=== PATIENT | female | born 1990 | race American Indian/Alaskan Native ===

== ENCOUNTER 2018-10-09 18:59 | Emergency (ER) | payer MEDICAID ==
[2018-10-09 19:25] VITALS: BP 140/98
[2018-10-09 21:03] LABS: HCG Qualitative,Urine Negative (Negative)
--- NOTE | 2018-10-09 22:19 | XRay Report ---
PROCEDURE: XR CHEST 1V AP TECHNIQUE: Chest radiograph single view. HISTORY: Chest Pain COMPARISONS: None . FINDINGS: Heart: Normal. Mediastinum/Vessels: Mildly prominent madisyn may be related to vascular prominence or adenopathy. Lungs/Pleural space: No infiltrate, effusion, or pneumothorax. Bony thorax: No acute osseous abnormality. Life support devices: None. IMPRESSION: No radiographic evidence of acute cardiopulmonary abnormality. Mildly prominent madisyn may related to vascular prominence or adenopathy This document is electronically signed by Ximena Kumar MD., Oct 09 2018 10:17:17 PM ET
--- NOTE | 2018-10-09 23:51 | Emergency Department Report ---
ED Chest Pain HPI - General Chief Complaint: Chest Pain Stated Complaint: CHEST/STOMACH PAIN/VOMITTING Source: patient Mode of arrival: Ambulatory Limitations: No Limitations - History of Present Illness Initial Comments: This is a 28-year-old -[place] female who presents to the emergency room with right upper quadrant abdominal pain and chest pain with exhalation. Pat ient states she was seen in this emergency room around March or April with normal labs and ultrasound. Patient states she was referred to a special services director which she saw in April with an inconclusive diagnosis. Patient states special services director who sent her to engineering technical writer who did a full workup with no findings. Patient reports pain is worse after eating. She is currently taken Pepto-Bismol and Gas-X with no improvement of symptoms. Last pressure. August 16, A0. Patient reports a history of irregular menses. Reports nausea and vomiting. Denies diarrhea. MD Complaint: chest pain Onset/Timin -: days(s) Onset: after eating Pain Location: substernal Pain Radiation: none Severity: moderate Severity scale (0 -10): 5 Quality: other (burning) Consistency: intermittent Improves With: nothing Worsens With: eating re: nausea, vomting. denies: diaphoresis, dyspnea, sense of impending doom Other Symptoms: denies: cough, fever, syncope, rash, acid taste in mouth, leg swelling, palpitations, burping Treatments Prior to Arrival: other (antiacids) Aspirin use within the Past 7 Days: (0) No - Related Data On Oral Contraceptives: No Previous Rx's Medication Instructions Recorded Last Taken Type Nitrofurantoin Brewster/M-Cryst 100 mg PO Q12HR #14 capsule 03/05/15 Unknown Rx [Macrobid CAP] Acetaminophen/Codeine [Tylenol #3] 1 tab PO TID PRN #10 tab 03/30/15 Unknown Rx guaiFENesin [Robitussin] 200 mg PO Q6HR #10 tablet 03/30/15 Unknown Rx Hyoscyamine Subl [Levsin Sl 0.125 0.125 mg SL Q4HR PRN #20 tablet 04/02/18 Unknown Rx TAB] Ondansetron (Nf) [Zofran TAB] 8 mg PO Q8HR PRN #20 tablet 04/02/18 Unknown Rx Omeprazole 40 mg PO DAILY #30 capsule. 10/10/18 Unknown Rx Ondansetron [Zofran Odt] 4 mg PO Q8HR PRN #15 tab.dainadis 10/10/18 Unknown Rx Allergies Allergy/AdvReac Type Severity Reaction Status Date / Time No Known Allergies Allergy Verified 04/02/18 08:25 Heart Score - HEART Score History: Slightly suspicious EKG: Normal Age: < 45 Risk factors: No known risk factors Troponin: < normal limit HEART Score: 0 ED Review of Systems ROS: Stated complaint: CHEST/STOMACH PAIN/VOMITTING Other details as noted in HPI Constitutional: denies: chills, fever Respiratory: denies: cough, shortness of breath, wheezing Cardiovascular: chest pain. denies: palpitations Gastrointestinal: abdominal pain, nausea, vomiting. denies: diarrhea Musculoskeletal: denies: back pain, joint swelling, arthralgia Skin: denies: rash, lesions Neurological: denies: headache, weakness, paresthesias Psychiatric: denies: anxiety, depression ED Past Medical Hx - Past Medical History Previous Medical History?: No Hx Hypertension: No Hx Diabetes: No Hx Deep Vein Thrombosis: No Hx Renal Disease: No Hx Sickle Cell Disease: No Hx Seizures: No Hx Asthma: No Hx HIV: No Additional medical history: Severe morbid obesity - Surgical History Past Surgical History?: No - Social History Smoking Status: Never Smoker Substance Use Type: None - Medications Home Medications: Home Medications Medication Instructions Recorded Confirmed Last Taken Type Nitrofurantoin Brewster/M-Cryst 100 mg PO Q12HR #14 capsule 03/05/15 Unknown Rx [Macrobid CAP] Acetaminophen/Codeine [Tylenol #3] 1 tab PO TID PRN #10 tab 03/30/15 Unknown Rx guaiFENesin [Robitussin] 200 mg PO Q6HR #10 tablet 03/30/15 Unknown Rx Hyoscyamine Subl [Levsin Sl 0.125 0.125 mg SL Q4HR PRN #20 tablet 04/02/18 Unknown Rx TAB] Ondansetron (Nf) [Zofran TAB] 8 mg PO Q8HR PRN #20 tablet 04/02/18 Unknown Rx Omeprazole 40 mg PO DAILY #30 capsule. 10/10/18 Unknown Rx Ondansetron [Zofran Odt] 4 mg PO Q8HR PRN #15 tab.vanesa 10/10/18 Unknown Rx ED Physical Exam - General Limitations: No Limitations General appearance: alert, in no apparent distress, obese (morbidly obese) - Respiratory Respiratory exam: Present: normal lung sounds bilaterally, chest wall ten derness. Absent: respiratory distress - Cardiovascular Cardiovascular Exam: Present: regular rate, normal rhythm. Absent: systolic murmur, diastolic murmur, rubs, gallop - GI/Abdominal GI/Abdominal exam: Present: soft, tenderness (RUQ), normal bowel sounds. Absent: distended, guarding, rebound, rigid, organomegaly, mass, bruit, pulsatile mass - Neurological Exam Neurological exam: Present: alert, oriented X3 - Psychiatric Psychiatric exam: Present: normal affect, normal mood - Skin Skin exam: Present: warm, dry, intact, normal color. Absent: rash ED Course Vital Signs 10/09/18 19:19 Temperature 98.9 F Pulse Rate 78 Respiratory 20 Rate Blood Pressure 140/98 O2 Sat by Pulse 100 Oximetry ED Medical Decision Making - Lab Data Result diagrams: 10/09/18 23:44 Lab Results 10/09/18 10/09/18 Range/Units 20:34 23:44 WBC 11.4 H (4.5-11.0) K/mm3 RBC 4.77 (3.65-5.03) M/mm3 Hgb 11.1 (10.1-14.3) gm/dl Hct 33.5 (30.3-42.9) % MCV 70 L (79-97) fl MCH 23 L (28-32) pg MCHC 33 (30-34) % RDW 19.8 H (13.2-15.2) % Plt Count 353 (140-440) K/mm3 Urine HCG, Qual Negative (Negative) - EKG Data -: No EKG Interpreted by Me (EKG Interpreted by Attending) EKG shows normal: sinus rhythm Rate: normal - Radiology Data Radiology results: report reviewed PROCEDURE: XR CHEST 1V AP TECHNIQUE: Chest radiograph single view. HISTORY: Chest Pain COMPARISONS: None . FINDINGS: Heart: Normal. Mediastinum/Vessels: Mildly prominent madisyn may be related to vascular prominence or adenopathy. Lungs/Pleural space: No infiltrate, effusion, or pneumothorax. Bony thorax: No acute osseous abnormality. Life support devices: None. IMPRESSION: No radiographic evidence of acute cardiopulmonary abnormality. Mildly prominent madisyn may related to vascular prominence or adenopathy - Medical Decision Making Patient was examined by me. Vitals are normal and patient is in no acute distress. Obtained a EKG, CBC, and chest x-ray. X-rays dictated by radiologist and no acute findings. Mildly prominent madisyn may related to vascular prominence or adenopathy. CBC unremarkable. Patient had an ultrasound in this emergency room in March with no acute findings. Patient has been seen by gastroenterology and cardiology with no defined diagnosis. Given Pepcid and ibuprofen while in ER. Patient reports pain improved. Abdominal pain after eating. Findings are susceptible of duodenal ulcers. Patient will be started on tramadol of omeprazole. Referral to gastroenterology for upper GI endoscopy. Patient informed of results. Plan discussed with patient to discharge home and treat outpatient. She agrees with ER plan. Patient discharged home in stable condition. Follow up with PCP in 2-3 days. Critical care attestation.: If time is entered above; I have spent that time in minutes in the direct care of this critically ill patient, excluding procedure time. ED Disposition Clinical Impression: Chest pain Qualifiers: Chest pain type: unspecified Qualified Code(s): R07.9 - Chest pain, unspecified Abdominal pain Qualifiers: Abdominal location: right upper quadrant Qualified Code(s): R10.11 - Right upper quadrant pain Gastritis Qualifiers: Gastritis type: other gastritis Chronicity: acute Gastritis bleeding: without bleeding Qualified Code(s): K29.00 - Acute gastritis without bleeding Obese Qualifiers: Obesity type: due to excess calories Obesity classification: adult class 3 (BMI >= 40) Serious obesity comorbidity presence: without serious comorbidity Body mass index: BMI 60.0-69.9 Qualified Code(s): E66.01 - Morbid (severe) obesity due to excess calories; Z68.44 - Body mass index (BMI) 60.0-69.9, adult Disposition: DC- TO HOME OR SELFCARE Is pt being admited?: No Does the pt Need Aspirin: No Condition: Stable Instructions: Chest Pain (ED), Peptic Ulcer (ED) Additional Instructions: Follow-up with the special services director to have the upper GI study to rule out pep tic ulcer disease. Frequent hand washing is important to reduce spread. Prompt disinfection of contaminated surfaces with household chlorine bleach-based living coach and washing of soiled clothing and bedding should be advised. If food or water is thought to be contaminated, it should be avoided. Increase fluid intake. Drinks high in sugars such as carbonated soft drinks, fruit juice, and highly sugared liquids should be avoided. Prescriptions: Omeprazole 40 mg PO DAILY #30 capsule. Ondansetron [Zofran Odt] 4 mg PO Q8HR PRN #15 tab.rapdis PRN Reason: Nausea And Vomiting Referrals: DELMI ARRIETA MD [Primary Care Provider] - 3-5 Days [facility] [Provider Group] - 3-5 Days [facility] [Outside] - 3-5 Days [facility] [Outside] - 3-5 Days Forms: Work/School Release Form(ED) Time of Disposition: 01:53
[2018-10-09] MEDS ORDERED: PEPCID PO ONE (23:56)
[2018-10-09] MEDS ORDERED: TORADOL IM ONE (23:56)
[2018-10-10] MEDS ORDERED: IBUPROFEN PO ONE (00:04)
[2018-10-10 00:32] LABS: Hematocrit 33.5 % (30.3-42.9); Hemoglobin 11.1 gm/dl (10.1-14.3); Mean Corpuscular HGB Conc 33 % (30-34); Mean Corpuscular Volume 70 fl (79-97); Platelet Count 353 K/mm3 (140-440); Red Blood Count 4.77 M/mm3 (3.65-5.03); Red Cell Distribution Width 19.8 % (13.2-15.2)
== END 2018-10-10 02:10 | disposition home or self-care (01) ==
LOC: ED 18:59
DX: K29.00 Acute gastritis without bleeding (principal); E66.01 Morbid (severe) obesity due to excess calories; Z68.44 Body mass index [BMI] 60.0-69.9, adult
CPT/HCPCS: 36415; 71045; 81025; 85027; 93005; 93010; 99284; J1885

== ENCOUNTER 2018-10-23 11:45 | Day surgery (SDC) | payer MEDICAID ==
[~2018-10-23 11:45] MED LIST: NACL 0.9% 1000 ML 1,000 ML IV SCH
[2018-10-23] MEDS ORDERED: SUBLIMAZE ONE (13:13)
[2018-10-23] MEDS ORDERED: VERSED ONE ×2 (13:13→13:43)
[2018-10-23] MEDS ORDERED: DIPRIVAN 10 MG/ML IV ONE ×2 (13:13→13:14)
--- NOTE | 2018-10-23 13:32 | Post Operative Note ---
Date of procedure: 10/23/18 Pre-op diagnosis: abdominal pain, nausea/vomiting Post-op diagnosis: same (normal upper endoscopy) Findings: normal EGD Procedure: EGD Anesthesia: MAC Surgeon: JACQUELINE PIERSON Estimated blood loss: none Pathology: none Condition: stable Disposition: same day
--- NOTE | 2018-10-23 13:34 | Operative Report ---
Operative Report Operative Report: Esophagogastroduodenoscopy Procedure Note Date of procedure: 10/23/2018 Endoscopist: Darius Carmona Pre-op diagnosis: Abdominal pain, nausea/vomiting Post-op diagnosis: Normal EGD Anesthesia: MAC Complications: No immediate complications Estimated blood loss: None Procedure: After consent was obtained, the patient was placed in the left lateral decubitus position. The fujinon endoscope was inserted into the patient's mouth under direct vision, and advanced into the 2nd portion of the duodenum without difficulty. The patient tolerated the procedure well. The views of the mucosa were good. Patient's vital signs were monitored continuously throughout the procedure. Findings: The esophagus appeared normal. There was a moderate amount of clear liquid in the stomach which was completely suctioned. The stomach appeared normal. The duodenum appeared normal. Impression: 1. Normal upper endoscopy Recommendations: -follow-up in clinic as scheduled -continue current medications
[2018-10-23] MEDS ORDERED: LOPRESSOR IV ONE (13:43)
[2018-10-23 14:23] VITALS: BP 129/83
--- NOTE | 2018-10-23 18:17 | Anesthesia Consultation ---
Anesthesia Consult and Med Hx Date of service: 10/23/18 - Airway Anesthetic Teeth Evaluation: Good ROM Head & Neck: Adequate Mental/Hyoid Distance: Adequate Mallampati Class: Class III Intubation Access Assessment: Possibly Difficult - Pulmonary Exam CTA: Yes - Cardiac Exam Cardiac Exam: RRR - Pre-Operative Health Status ASA Pre-Surgery Classification: ASA3 Proposed Anesthetic Plan: MAC - Pulmonary Hx Asthma: No - Cardiovascular System Hx Hypertension: No - Central Nervous System Hx Seizures: No Hx Psychiatric Problems: No - Endocrine Hx Renal Disease: No Hx Hypothyroidism: No Hx Hyperthyroidism: No - Hematic Hx Anemia: No Hx Sickle Cell Disease: No - Other Systems Hx Alcohol Use: No
--- NOTE | 2018-10-23 18:17 | Anesthesia Day of Surgery ---
Anesthesia Day of Surgery - Day of Surgery Patient Examined: Yes Patient H&P Reviewed: Yes Patient is NPO: Yes Beta Blockers: No Cardiac Clearance: No Pulmonary Clearance: No
== END 2018-10-23 14:25 | disposition home or self-care (01) ==
LOC: GIO 11:45
PROVIDERS: ATTEND Internal Medicine Gastroenterology
DX: R10.13 Epigastric pain (principal); R11.2 Nausea with vomiting, unspecified; F17.210 Nicotine dependence, cigarettes, uncomplicated; Z98.891 History of uterine scar from previous surgery; Z79.899 Other long term (current) drug therapy; Z98.890 Other specified postprocedural states
CPT/HCPCS: 43235; 81025; J2250; J2704; J3010; J7030

== ENCOUNTER 2019-09-29 15:36 | Emergency (ER) | payer MEDICAID ==
[2019-09-29 15:51] VITALS: BP 150/96
== END 2019-09-29 15:49 | disposition left against medical advice (07) ==
LOC: ED 15:36
DX: R07.9 Chest pain, unspecified (principal); Z53.21 Procedure and treatment not carried out due to patient leaving prior to being seen by health care provider